=== PATIENT | female | born 1980 | race Caucasian/White ===

== ENCOUNTER 2018-03-17 12:57 | Emergency (ER) | payer OTHER ==
[2018-03-17 13:41] VITALS: BP 93/55
--- NOTE | 2018-03-17 14:27 | UC ---
Respiratory Complaint HPI - HPI Summary HPI Summary: 38 yo female with a 3-4 day hx of dry cough/chills/malaise no n/v/d no CP or SOB her daughter is on antibiotics for pneumonia - History of Current Complaint Chief Complaint: UCGeneralIllness Stated Complaint: HEADACHE, AND COUGH Time Seen by Provider: 03/17/18 14:15 Hx Obtained From: Patient Hx Last Menstrual Period: 02/26/18 Onset/Duration: Gradual Onset, Lasting Days Timing: Constant Severity Initially: Mild Severity Currently: Moderate Pain Intensity: 6 - RUIZ Pain Scale Used: 0-10 Numeric Character: Cough: Nonproductive Aggravating Factors: Nothing Alleviating Factors: Nothing Associated Signs And Symptoms: Positive: Chills - Allergies/Home Medications Allergies/Adverse Reactions: Allergies Allergy/AdvReac Type Severity Reaction Status Date / Time amoxicillin Allergy Rash Verified 03/17/18 13:42 PMH/Surg Hx/FS Hx/Imm Hx Previously Healthy: Yes Respiratory History: Pneumonia - Surgical History Surgical History: Yes Surgery Procedure, Year, and Place: tonsils - Family History Known Family History: Positive: Hypertension - Social History Alcohol Use: Weekly Substance Use Type: None Smoking Status (MU): Former Smoker Household Exposure Type: Cigarettes Review of Systems Constitutional: Negative Skin: Negative Eyes: Negative ENT: Negative Respiratory: Cough Cardiovascular: Negative Gastrointestinal: Negative Genitourinary: Negative Motor: Negative Neurovascular: Negative Musculoskeletal: Negative Neurological: Headache Psychological: Negative Is Patient Immunocompromised?: No All Other Systems Reviewed And Are Negative: Yes Physical Exam Triage Information Reviewed: Yes Appearance: Well-Appearing, No Pain Distress, Well-Nourished Vital Signs: Initial Vital Signs Temp 99 F 03/17/18 13:38 Pulse 86 03/17/18 13:38 Resp 15 03/17/18 13:38 BP 93/55 03/17/18 13:38 Pulse Ox 100 03/17/18 13:38 Vital Signs Reviewed: Yes Eyes: Positive: Conjunctiva Clear ENT: Positive: Hearing grossly normal. Negative: Nasal congestion, Nasal drainage, Tonsillar exudate, Trismus, Muffled voice, Hoarse voice Neck: Positive: Supple, Nontender, No Lymphadenopathy Respiratory: Positive: No respiratory distress, Rhonchi Cardiovascular: Positive: RRR, No Murmur Neurological: Positive: Alert, Muscle Tone Normal Psychological Exam: Normal Skin Exam: Normal UC Diagnostic Evaluation - Laboratory O2 Sat by Pulse Oximetry: 100 - niormal/not hypoxic Respiratory Course/Dx - Differential Dx/Diagnosis Provider Diagnoses: acute bronchitis Discharge - Sign-Out/Discharge Documenting (check all that apply): Patient Departure - Discharge Plan Condition: Stable Disposition: HOME Prescriptions: Azithromycin TAB* [Zithromax TAB*] 250 mg PO DAILY #6 tab Patient Education Materials: Acute Bronchitis (ED) Referrals: Jaclyn Lopez MD [Primary Care Provider] - 4 Days (if not better) Additional Instructions: rest fluids mucinex or robitussin - Billing Disposition and Condition Condition: STABLE Disposition: Home
== END 2018-03-17 14:34 | disposition home or self-care (01) ==
LOC: UCEAST 12:57
DX: J20.9 Acute bronchitis, unspecified (principal); Z88.0 Allergy status to penicillin; Z87.01 Personal history of pneumonia (recurrent); Z87.891 Personal history of nicotine dependence
CPT/HCPCS: 99212; G0463

== ENCOUNTER 2018-05-19 07:04 | Day surgery (SDC) | payer OTHER ==
[~2018-05-19 07:04] MED LIST: Buffered Lidocaine 0.9% SYRIN* 5 ML/SYR SYRINGE INTRADERM ONE; Famotidine IV* 10 MG/ML 2 ML (20 mg) IV ONE
[2018-05-19] MEDS ORDERED: Famotidine IV* 10 MG/ML 2 ML (20 mg) ONE (07:31)
[2018-05-19] MEDS ORDERED: Bupivacaine 0.25% EPI 200,000* 30 ML SDV ONE (08:02)
[2018-05-19] MEDS ORDERED: Midazolam* 1 MG/ML 5 ML VIAL (5 MG) ONE (08:34)
[2018-05-19] MEDS ORDERED: fentaNYL* 50 MCG/ML 2 ML VIAL (100 MCG VIAL) ONE ×2 (08:34→09:06)
[2018-05-19] MEDS ORDERED: Succinylcholine* 20 MG/ML 10 ML VIAL ONE (08:55)
[2018-05-19] MEDS ORDERED: Propofol* 10 MG/ML 20 ML BTL IV PUSH ONE (08:55)
[2018-05-19] MEDS ORDERED: Ketorolac INJ* 30 MG/ML 1 ML VIAL ONE (08:55)
[2018-05-19] MEDS ORDERED: Ondansetron INJ* 2 MG/ML VIAL ONE (08:55)
[2018-05-19] MEDS ORDERED: Dexamethasone IV* 4 MG/ML 1 ML (4 MG) ONE (08:55)
[2018-05-19] MEDS ORDERED: DiMENhydriNATE IV* 50 MG/ML VIAL ONE (08:55)
[2018-05-19] MEDS ORDERED: Lidocaine 2% PF * 5 ML VIAL ONE (08:56)
[2018-05-19] MEDS ORDERED: Naloxone* 0.4 MG/ML 1 ML VIAL IV PRN (09:32)
[2018-05-19] MEDS ORDERED: oxyCODONE TAB* 5 MG TAB PO PRN (09:32)
[2018-05-19] MEDS ORDERED: Acetaminophen IV 1GM/100ML * 1,000 MG/100 ML VIAL IVPB ONE (09:32)
[2018-05-19] MEDS ORDERED: DiMENhydriNATE IV* 50 MG/ML VIAL IV PUSH PRN (09:32)
[2018-05-19] MEDS ORDERED: HYDROmorphone INJ1* 1 MG/ML SYRINGE IV PRN (09:32)
[2018-05-19] MEDS ORDERED: Acetaminophen IV 1GM/100ML * 100 ML ONE (09:41)
[2018-05-19 11:13] VITALS: BP 97/59
--- NOTE | 2018-05-20 03:13 | OP ---
OPERATIVE REPORT: DATE OF OPERATION: 05/19/18 DATE OF : 82 SURGEON: Zelalem Matos MD ANESTHESIA: General endotracheal tube. PRE-OP DIAGNOSIS: Right dermoid cyst. POST-OP DIAGNOSIS: Right dermoid cyst. OPERATIVE PROCEDURE: Laparoscopic right salpingo-oophorectomy. FINDINGS: On exam under anesthesia, the uterus was retroverted. On laparoscopy, anterior bladder fl ap appeared normal. The left tube and ovary appeared normal. The right ovary was enlarged with cyst on it, though the surface was smooth. COMPLICATIONS: None. DESCRIPTION OF PROCEDURE: The patient was identified, procedure identified as a right salpingo-oopho rectomy. The patient was taken to the operating room, prepped and draped in the usual fashion in the dorsal lithotomy position under general anesthesia. A sponge stick was placed in the vagina for man ipulation. A small infraumbilical incision was made and carried down through the fat, fascia, and pe ritoneum. A GelPOINT mini Yung retractor was placed in the abdominal cavity. It was found to be fr ee of bowel and omentum after manipulation. Using the scope, the LigaSure was used to ligate and the n incise the infundibulopelvic ligament. The right fallopian tube was incised along the mesosalpinx u ntil the whole fallopian tube had been excised. This was extracted. The infundibulopelvic ligament and broad ligament were dissected using the LigaSure until the ovarian ligament was cauterized and in cised and the ovary was freed from its pedicles. An EndoCatch bag was placed. The ovary was placed within the bag and brought out into the umbilical incision. It was incised to release yellow fluid w ithin the bag and brought out through the incision. The abdomen was reinspected and found to be hemo static. All instruments were removed from the abdomen. The abdomen was deflated with CO2. Fascia w as then closed using 2-0 Vicryl in a running fashion. Good hemostasis was achieved in the subcutaneou s tissue and the skin was closed with 4-0 Vicryl in a subcuticular fashion and then skin glue. All s ponge and instrument counts were correct, and the sponge and sponge stick were removed from the vagin a, and the patient returned to the recovery room in stable condition. [id number]/[facility] #: [id number]
== END 2018-05-19 11:19 | disposition home or self-care (01) ==
LOC: OR 07:04
PROVIDERS: ATTEND Obstetrics & Gynecology
DX: D27.0 Benign neoplasm of right ovary (principal); N83.11 Corpus luteum cyst of right ovary; I34.1 Nonrheumatic mitral (valve) prolapse; Z72.0 Tobacco use
CPT/HCPCS: 81025; 88305; J0330; J1100; J1240; J1885; J2250; J2405; J2704; J3010